=== PATIENT | male | born 1985 | race Caucasian/White ===

== ENCOUNTER 2023-12-03 21:38 | Emergency (ER) | payer MEDICAID ==
[~2023-12-03] VITALS: Ht 165.1 cm; Wt 74.8 kg
[2023-12-03 21:38] VITALS: BP 117/74; PULSE 102; RESP 16; TEMP 97.8; O2SAT 98
[2023-12-03] MEDS ORDERED: METH4TAB1 PO (22:12)
[2023-12-03] MEDS ORDERED: MOTRIN PO (22:12)
[2023-12-03] MEDS ORDERED: AMOX500C25 PO (22:12)
== END 2023-12-03 22:46 ==
LOC: EDSEX 21:38 → MED 21:38
DX: S20.211A Contusion of right front wall of thorax, initial encounter (principal); J45.909 Unspecified asthma, uncomplicated; Z79.899 Other long term (current) drug therapy; W18.30XA Fall on same level, unspecified, initial encounter; Y93.89 Activity, other specified; Y92.89 Other specified places as the place of occurrence of the external cause; Y99.8 Other external cause status
CPT/HCPCS: 71101; 99283